=== PATIENT | male | born 1995 | race Caucasian/White ===

== ENCOUNTER 2017-08-23 22:51 | Emergency (ER) | payer SELFPAY ==
[2017-08-23 22:58] VITALS: RESP 19
[2017-08-23] MEDS ORDERED: Sodium Chloride 0.9% 1,000 ML IV STA (23:32)
--- NOTE | 2017-08-23 23:48 | ED PDOC ---
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 Basically feels heart fluttering associated with shortness of breath. Patient is continued to feel now, but feels a little better. Denies drugs, alcohol, medications. Reports increased caffeine use and stress recently due to final exams. Reports lack of sleep. PMD: No Provider Past Medical History Reviewed: Historical Data, Nursing Documentation, Vital Signs Vital Signs: Last Vital Signs Temp 98.1 F 08/24/17 01:35 Pulse 74 08/24/17 01:35 Resp 19 08/24/17 01:35 BP 119/63 08/24/17 01:35 Pulse Ox 99 08/24/17 01:35 - Medical History PMH: No Chronic Diseases - Surgical History Surgical History: No Surg Hx - Family History Family History: States: Unknown Family Hx - Social History Current smoker - smoking cessation education provided: No Alcohol: None Drugs: Denies - Allergies Allergies/Adverse Reactions: Allergies Allergy/AdvReac Type Severity Reaction Status Date / Time No Known Allergies Allergy Verified 08/23/17 23:03 Review of Systems ROS Statement: Except As Marked, All Systems Reviewed And Found Negative Respiratory: Positive for: Shortness of Breath Physical Exam - Reviewed Nursing Documentation Reviewed: Yes Vital Signs Reviewed: Yes - Physical Exam Appears: Positive for: Well, No Acute Distress Head Exam: Positive for: ATRAUMATIC, NORMOCEPHALIC Skin: Positive for: Warm, Dry Eye Exam: Positive for: EOMI, PERRL ENT: Negative for: Pharyngeal Erythema, Tonsillar Exudate Neck: Positive for: Painless ROM, Supple Cardiovascular/Chest: Positive for: Regular Rate, Rhythm. Negative for: Edema, Murmur Respiratory: Positive for: Normal Breath Sounds (Lungs clear). Negative for: Rales, Wheezing, Respiratory Distress Gastrointestinal/Abdominal: Positive for: Soft. Negative for: Tenderness Back: Positive for: Normal Inspection. Negative for: Decreased ROM Extremity: Positive for: Normal ROM. Negative for: Deformity Lymphatic: Negative for: Adenopathy Neurologic/Psych: Positive for: Alert, Mood/Affect (Anxious). Negative for: Motor/Sensory Deficits - Laboratory Results Result Diagrams: 08/23/17 23:52 08/23/17 23:52 - ECG ECG: Positive for: Interpreted By Me, Viewed By Me ECG Rhythm: Positive for: Normal QRS, Normal ST Segment, Sinus Rhythm (Normal) Interpretation Of Abn EKG: Questionable PT waves Rate: 90 O2 Sat by Pulse Oximetry: 100 (RA) Pulse Ox Interpretation: Normal Medical Decision Making Medical Decision Making: Time: 23:16 Impression(s): Palpitations Differentials include, but not limited to: Stress, Arrhythmia, Dehydration, Electrolyte Abnormalities, Thyroid Disorder Plan: - EKG - CMP - Drug Screen, Urine - Magnesium - Phosphorous - TSH - Troponin I - ED Urine Dipstick - CBC (with differential) - D-Dimer - Chest X-Ray - Sodium Chloride 0.9% 1,000 ml IV 1,000 mls/hr Phosphorus Level Reveals 2.2 mg/dl [low] Labs demonstrates low phosphorus. Otherwise, no emergent significant abnormalities. Patient is stable for discharged. Advised better self care and hydration. Avoid caffeine and continue to avoid drugs and alcohol. Scribe Attestation: Documented by Osiel Cordova, acting as a scribe for Eloise Domínguez MD. Provider Scribe Attestation: All medical record entries made by the Scribe were at my direction and personally dictated by me. I have reviewed the chart and agree that the record accurately reflects my personal performance of the history, physical exam, medical decision making, and the department course for this patient. I have also personally directed, reviewed, and agree with the discharge instructions and disposition. Disposition - Clinical Impression Clinical Impression: Palpitations - Patient ED Disposition Is Patient to be Admitted: No - Disposition Referrals: [facility] [Outside] Disposition: Routine/Home Disposition Time: 00:40 Condition: IMPROVED Instructions: Palpitations Forms: [facility] (Tajik)
[2017-08-23 23:57] LABS: BASO % 0.3 % (0.0-2.0); EOS % 0.1 % (0.0-4.0); HEMOGLOBIN 14.4 g/dL (12.0-18.0); LYMPH # 0.8 K/uL (1.0-4.3); MEAN CELL VOLUME 86.8 fl (80.0-94.0); MEAN CORPUSCULAR HEMOGLOBIN 28.7 pg (27.0-31.0); MEAN CORPUSCULAR HGB CONC 33.1 g/dL (33.0-37.0); MEAN PLATELET VOLUME 8.5 fl (7.2-11.7); MONO # 0.4 K/uL (0.0-0.8); NEUT # 4.2 K/uL (1.8-7.0); NEUT % 77.6 % (50.0-75.0); RBC 5.02 Mil/uL (4.40-5.90); RED CELL DISTRIBUTION WIDTH 13.3 % (11.5-14.5); WHITE BLOOD COUNT 5.4 K/uL (4.8-10.8)
[2017-08-24 00:04] LABS: ALB/GLOB RATIO 1.3 (1.0-2.1); ALBUMIN 4.6 g/dL (3.5-5.0); ALT/SGPT 29 U/L (21-72); AST/SGOT 23 U/L (17-59); BLOOD UREA NITROGEN 15 mg/dl (9-20); CALCIUM 9.4 mg/dL (8.4-10.2); GFR AFRICAN-AMERICAN > 60; GFR NON-AFRICAN AMERICAN > 60
[2017-08-24 00:09] LABS: BARBITURATES, UR NEGATIVE (NEGATIVE); BENZODIAZEPINES, UR NEGATIVE (NEGATIVE); OPIATES, UR NEGATIVE (NEGATIVE); PHENCYCLIDINE, UR NEGATIVE (NEGATIVE)
[2017-08-24] MEDS ORDERED: Potassium & Sodium Phosphate PO STA (00:14)
[2017-08-24 01:36] VITALS: BP 119/63; TEMP 98.1
--- NOTE | 2017-08-24 09:01 | RAD ---
HISTORY: palpitations shortness of breath COMPARISON: No prior. TECHNIQUE: Chest PA and lateral FINDINGS: LUNGS: No active pulmonary disease. PLEURA: No significant pleural effusion identified. No pneumothorax apparent. CARDIOVASCULAR: Normal. OSSEOUS STRUCTURES: No significant abnormalities. VISUALIZED UPPER ABDOMEN: Normal. OTHER FINDINGS: None. IMPRESSION: No active disease.
--- NOTE | 2017-08-24 13:01 | CARD ---
APPROVED REPORT EKG Measurement Heart [id number] <Conclusion> Normal sinus rhythm Normal ECG
[2017-08-24 17:57] VITALS: PULSE 90; O2SAT 100
== END 2017-08-24 01:36 | disposition home or self-care (01) ==
LOC: H.ER 22:51
DX: R00.2 Palpitations (principal)
CPT/HCPCS: 71046; 80053; 83735; 84100; 84443; 84484; 85025; 85378; 93005; 99282; G0480; J7040

== ENCOUNTER 2017-08-27 01:07 | Emergency (ER) | payer OTHER ==
[2017-08-27 01:21] VITALS: BMI 20.9
[2017-08-27 01:23] VITALS: TEMP 98
[2017-08-27] MEDS ORDERED: Sodium Chloride 0.9% 1,000 ML IV STA (01:54)
--- NOTE | 2017-08-27 02:36 | ED PDOC ---
HPI: Chest Pain Time Seen by Provider: 08/27/17 01:20 Chief Complaint (Nursing): Palpitations Chief Complaint (Provider): Palpitations History Per: Patient History/Exam Limitations: no limitations Onset/Duration Of Symptoms: Days Additional Complaint(s): 22 years old male presents to the ED complaining of shortness of breath and fluttering heart onset 2 hours. Patient reports drinking large amounts of caffeine and experiencing stress and anxiety due to season as he is a student at [employer]. He also admits sleeping less. Patient states he has been here 4 days ago for the same complaint, was here yesterday for workup, which turned to be negative and was discharged. PMD: non provided Past Medical History Reviewed: Historical Data, Nursing Documentation, Vital Signs Vital Signs: Last Vital Signs Temp 98.0 F 08/27/17 01:23 Pulse 73 08/27/17 03:36 Resp 18 08/27/17 03:36 BP 121/71 08/27/17 03:36 Pulse Ox 98 08/27/17 03:36 - Medical History PMH: Anxiety - Surgical History Surgical History: No Surg Hx - Family History Family History: States: Unknown Family Hx - Social History Current smoker - smoking cessation education provided: No Alcohol: None Drugs: Denies - Allergies Allergies/Adverse Reactions: Allergies Allergy/AdvReac Type Severity Reaction Status Date / Time No Known Allergies Allergy Verified 08/27/17 01:21 JONAH Risk Score for UA/NSTEMI - JONAH Risk Score Age > 64: NO 3 or more CAD Risk Factors: NO Known CAD (Stenosis greater than 50%): NO Aspirin use in past 7 days: NO Severe Angina: NO EKG ST changes greater than 0.5mm: NO Positive Cardiac Marker: NO JONAH Score: 0 Risk %: 5% Review of Systems ROS Statement: Except As Marked, All Systems Reviewed And Found Negative Cardiovascular: Positive for: Palpitations Psych: Positive for: Anxiety Physical Exam - Reviewed Nursing Documentation Reviewed: Yes - Physical Exam Appears: Positive for: Non-toxic, No Acute Distress Skin: Positive for: Normal Color, Warm, Dry Eye Exam: Positive for: Normal appearance, EOMI, PERRL ENT: Positive for: Normal ENT Inspection Neck: Positive for: Normal, Painless ROM, Supple Cardiovascular/Chest: Positive for: Regular Rate, Rhythm. Negative for: Murmur Respiratory: Positive for: Normal Breath Sounds. Negative for: Respiratory Distress Gastrointestinal/Abdominal: Positive for: Normal Exam Extremity: Positive for: Normal ROM Neurologic/Psych: Positive for: Alert, Oriented - ECG ECG Rhythm: Positive for: Normal QRS, Sinus Rhythm (Normal). Negative for: ST/ T Changes O2 Sat by Pulse Oximetry: 99 (RA) Pulse Ox Interpretation: Normal Medical Decision Making Medical Decision Making: Time: 153 Initial Impression: Palpitations due to caffeine and anxiety. Initial Plan: --CMP --Troponin I --CBC --NaCl 1,000 ml 0220 Patient refused blood work. 025 Crisis evaluation is ordered for anxiety. pt denies si or hi. pt seen by crisis and cleared for dc. pt feels better now. Scribe Attestation: Documented by Xi Ryan, acting as a scribe for Andreia Dan MD. Provider Scribe Attestation: All medical record entries made by the Scribe were at my direction and personally dictated by me. I have reviewed the chart and agree that the record accurately reflects my personal performance of the history, physical exam, medical decision making, and the department course for this patient. I have also personally directed, reviewed, and agree with the discharge instructions and disposition. Disposition - Clinical Impression Clinical Impression: Rapid palpitations - Patient ED Disposition Is Patient to be Admitted: No Counseled Patient/Family Regarding: Studies Performed, Diagnosis, Need For Followup - Disposition Referrals: [facility] [Outside] [facility] [Outside] Disposition: Routine/Home Disposition Time: 03:00 Condition: IMPROVED Additional Instructions: follow up with your primary doctor in 1-2 days return to the ED with any worsening or concerning symptoms Instructions: Palpitations (DC) Forms: [employer] (Peruvian)
[2017-08-27 03:37] VITALS: BP 121/71; PULSE 73; RESP 18
[2017-08-28 13:19] VITALS: O2SAT 99
== END 2017-08-27 04:05 | disposition home or self-care (01) ==
LOC: H.ER 01:07
DX: R00.2 Palpitations (principal); F41.9 Anxiety disorder, unspecified